=== PATIENT | male | born 1990 | race Caucasian/White ===

== ENCOUNTER 2017-04-30 11:00 | Emergency (ER) | payer OTHER ==
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
[2017-04-30 14:42] VITALS: BP 134/75
== END 2017-04-30 14:42 | disposition home or self-care (01) ==
LOC: ER 11:00
DX: S46.912A Strain of unspecified muscle, fascia and tendon at shoulder and upper arm level, left arm, initial encounter (principal); R16.1 Splenomegaly, not elsewhere classified; R07.89 Other chest pain; M54.9 Dorsalgia, unspecified; M54.2 Cervicalgia; M79.642 Pain in left hand; V49.9XXA Car occupant (driver) (passenger) injured in unspecified traffic accident, initial encounter
CPT/HCPCS: 71260; 72125; 74177; 99284

== ENCOUNTER 2017-05-25 06:45 | Emergency (ER) | payer OTHER ==
[2017-05-25] MEDS ORDERED: TETRACAINE HCL 0.5% OPH SOLN 2 ML OS ONE (07:06)
[2017-05-25] MEDS ORDERED: TOBRAMYCIN SULFATE/DEXAMETH OPH SUSP 2.5 ML OS ONE (07:32)
--- NOTE | 2017-05-25 07:39 | ER Document Report ---
ED General - General Chief Complaint: Eye Problem Stated Complaint: POSSIBLE EYE INFECTION Time Seen by Provider: 05/25/17 07:06 TRAVEL OUTSIDE OF THE [place] IN LAST 30 DAYS: No - HPI Patient complains to provider of: Left eye irritation Notes: Patient wears contacts states for the last 2 3 days having irritation to the left eye. Patient states when he wakes up the morning is red with crusting around it. Patient came to the ER today denies any eye trauma states changes contacts regularly. Patient denies any fever chills nausea vomiting diarrhea. Denies any visual changes. - Related Data Allergies/Adverse Reactions: Penicillins Allergy (Verified 05/25/17 06:46) CILLINS Allergy (Uncoded 05/25/17 06:46) Past Medical History - Social History Smoking Status: Never Smoker Chew tobacco use (# tins/day): Yes Frequency of alcohol use: Social Family History: DM Patient has suicidal ideation: No Patient has homicidal ideation: No Renal/ Medical History: Denies: Hx Peritoneal Dialysis Psychiatric Medical History: Reports: Hx Attention Deficit Hyperactivity Disorder, Hx Bipolar Disorder Past Surgical History: Reports: Hx Orthopedic Surgery - RIGHT HAND - Immunizations Hx Diphtheria, Pertussis, Tetanus Vaccination: Yes Review of Systems - Review of Systems Constitutional: No symptoms reported EENT: Eye pain, Eye discharge Cardiovascular: No symptoms reported Respiratory: No symptoms reported Gastrointestinal: No symptoms reported Genitourinary: No symptoms reported Male Genitourinary: No symptoms reported Musculoskeletal: No symptoms reported Skin: No symptoms reported Hematologic/Lymphatic: No symptoms reported Neurological/Psychological: No symptoms reported -: Yes All other systems reviewed and negative Physical Exam - Vital signs Vitals: Temp Pulse Resp BP Pulse Ox 97.8 F 84 18 127/79 H 98 05/25/17 06:46 05/25/17 06:46 05/25/17 06:46 05/25/17 06:46 05/25/17 06:46 Interpretation: Normal - General General appearance: Appears well, Alert - HEENT Head: Normocephalic, Atraumatic Eyes: Normal Conjunctiva: Injected Cornea: Normal Extraocular movements intact: Yes Eyelashes: Normal Pupils: PERRL Lids everted for exam: left: Normal - Version of the upper eyelid shows irritation of the medial being glands - Respiratory Respiratory status: No respiratory distress Chest status: Nontender Breath sounds: Normal Chest palpation: Normal - Cardiovascular Rhythm: Regular Heart sounds: Normal auscultation Murmur: No - Abdominal Inspection: Normal Distension: No distension Bowel sounds: Normal Tenderness: Nontender Organomegaly: No organomegaly - Back Back: Normal, Nontender - Extremities General upper extremity: Normal inspection, Nontender, Normal color, Normal ROM , Normal temperature General lower extremity: Normal inspection, Nontender, Normal color, Normal ROM , Normal temperature, Normal weight bearing. No: Raffi's sign - Neurological Neuro grossly intact: Yes Cognition: Normal Orientation: AAOx4 Cisco Coma Scale Eye Opening: Spontaneous Cisco Coma Scale Verbal: Oriented Cisco Coma Scale Motor: Obeys Commands Ebenezer Coma Scale Total: 15 Speech: Normal Motor strength normal: LUE, RUE, LLE, RLE Sensory: Normal - Psychological Associated symptoms: Normal affect, Normal mood - Skin Skin Temperature: Warm Skin Moisture: Dry Skin Color: Normal Course - Re-evaluation Re-evalutation: 05/25/17 11:15 Conjunctivitis with an underlying concern for possible early blepharitis will start patient on TobraDex as of the patient is a contact wearer. No dendritic lesions no fluorescein uptake on eye examination. - Vital Signs Vital signs: Temp Pulse Resp BP Pulse Ox 97.8 F 89 16 124/73 97 05/25/17 08:07 05/25/17 08:07 05/25/17 08:07 05/25/17 08:07 05/25/17 08:07 Procedures - Eye Procedure Left Fluorescein applied: Left Notes: 05/25/17 11:15 No signs of ulcers abrasions or dendritic lesions Discharge - Discharge Clinical Impression: Conjunctivitis Qualifiers: Conjunctivitis type: blepharoconjunctivitis Blepharoconjunctivitis type: unspecified Laterality: left Qualified Code(s): H10.502 - Unspecified blepharoconjunctivitis, left eye Condition: Good Disposition: HOME, SELF-CARE Instructions: Conjunctivitis ([facility]), Eyedrop Use ([facility]) Additional Instructions: Your examination today is consistent with a beginning of a conjunctivitis or infection of the eye and looks to be a beginning of an infection of the upper eyelids: Blepharitis. We will start you on an antibiotic drop TobraDex TobraDex is to be used 2 drops in the left eye 4 times a day for the next 7 days Do not wear contacts for the next 3-5 days. 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 He may take Tylenol Motrin for the pain. Wear dark sunglasses while outside Prescriptions: Naphazoline HCl/Pheniramine [Naphcon-A Eye Drops] 2 drop OP Q6 PRN #1 bottle PRN Reason: Forms: Return to Work Referrals: REJI TEE MD [Primary Care Provider] - Follow up as needed
[2017-05-25 08:08] VITALS: BP 124/73
== END 2017-05-25 08:07 | disposition home or self-care (01) ==
LOC: ER 06:45
DX: H10.502 Unspecified blepharoconjunctivitis, left eye (principal); Z88.0 Allergy status to penicillin
CPT/HCPCS: 99283; J3490

== ENCOUNTER 2017-08-19 17:30 | Emergency (ER) | payer MEDICAID ==
[2017-08-19] MEDS ORDERED: DIPH/PERTUSS(ACELL)/TETANUS VAC/PF 0.5 ML SYR (>=10YO) IM ONE (18:37)
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
--- NOTE | 2017-08-19 19:17 | RADIOLOGY REPORT (SQ) ---
EXAM DESCRIPTION: ANKLE LEFT COMPLETE COMPLETED DATE/TIME: 08/19/2017 7:03 pm REASON FOR STUDY: rolled ankle COMPARISON: None. NUMBER OF VIEWS: Three views. TECHNIQUE: AP, lateral, and oblique radiographic images acquired of the left ankle. LIMITATIONS: None. FINDINGS: MINERALIZATION: Normal. BONES: No acute fracture or dislocation. No worrisome bone lesions. JOINTS: No effusions. SOFT TISSUES: No soft tissue swelling. No foreign body. OTHER: No other significant finding. IMPRESSION: NEGATIVE STUDY OF THE LEFT ANKLE. NO RADIOGRAPHIC EVIDENCE OF ACUTE INJURY. TECHNICAL DOCUMENTATION: JOB ID: [id number] [email or web address]- All Rights Reserved Reading location - IP/workstation name: [email or web address]
--- NOTE | 2017-08-19 19:18 | RADIOLOGY REPORT (SQ) ---
EXAM DESCRIPTION: FINGER RIGHT COMPLETED DATE/TIME: 08/19/2017 7:03 pm REASON FOR STUDY: crush injury COMPARISON: None. NUMBER OF VIEWS: Three views. TECHNIQUE: AP, lateral, and oblique images acquired of the right fifth finger. LIMITATIONS: None. FINDINGS: MINERALIZATION: Normal. BONES: No acute fracture or dislocation. No worrisome bone lesions. SOFT TISSUES: No soft tissue swelling. No foreign body. OTHER: No other significant finding. IMPRESSION: NO RADIOGRAPHIC EVIDENCE OF ACUTE INJURY. COMMENT: SITE OF TRAUMA/COMPLAINT MARKED/STAMP COMPLETED: YES. TECHNICAL DOCUMENTATION: JOB ID: [id number] [employer]- All Rights Reserved Reading location - IP/workstation name: [email or web address]
[2017-08-19 20:16] VITALS: BP 128/76
== END 2017-08-19 20:14 | disposition home or self-care (01) ==
LOC: ER 17:30
DX: S67.196A Crushing injury of right little finger, initial encounter (principal); W23.0XXA Caught, crushed, jammed, or pinched between moving objects, initial encounter; S93.402A Sprain of unspecified ligament of left ankle, initial encounter; X50.0XXA Overexertion from strenuous movement or load, initial encounter
CPT/HCPCS: 99283; 90471; 73610; 73140; 90715; L1902

== ENCOUNTER 2019-12-16 07:27 | Emergency (ER) | payer SELFPAY ==
[2019-12-16 07:33] VITALS: BP 135/80
--- NOTE | 2019-12-16 08:27 | RADIOLOGY REPORT (SQ) ---
EXAM DESCRIPTION: WRIST RIGHT 3 VIEWS IMAGES COMPLETED DATE/TIME: 12/16/2019 7:42 am REASON FOR STUDY: Wrist Pain COMPARISON: None. NUMBER OF VIEWS: Three views right wrist LIMITATIONS: No technical limitations. FINDINGS: There is no acute or significant bone, joint or soft tissue abnormality. OTHER: No other significant finding. IMPRESSION: NORMAL STUDY. TECHNICAL DOCUMENTATION: JOB ID: [id number] Reading location - IP/workstation name: [email or web address]
[2019-12-16] MEDS ORDERED: TRAMADOL HCL 50 MG TABLET PO ONE (08:33)
--- NOTE | 2019-12-16 08:39 | ER Document Report ---
ED General - General Chief Complaint: Wrist Injury Stated Complaint: FALL/RIGHT WRIST PAIN,SWELLING Notes: Patient is a 29-year-old white male with a history of prior multi-tendon laceration and limited use of the right hand and fingers who presents the emergency department with a chief complaint of right wrist pain after a fall that occurred last night. Patient reports he tripped over a baby gate landing on her right outstretched hand. States he began having pain shortly after. States he tried to sleep it off but the pain continued to wake him from sleep. He has not tried any medications. States the pain is located to the entire dorsal surface of the right wrist. Denies any radiation of pain. Admits to tingling in the distal fingers. Reports limited range of motion secondary to prior injury but also secondary to pain. Denies any significant swelling or discoloration. No head injury or loss of consciousness. TRAVEL OUTSIDE OF THE [place] IN LAST 30 DAYS: No - Related Data Allergies/Adverse Reactions: Penicillins Allergy (Verified 12/16/19 08:05) CILLINS Allergy (Uncoded 12/16/19 08:05) Past Medical History - Social History Smoking Status: Former Smoker Chew tobacco use (# tins/day): Yes Frequency of alcohol use: Social Drug Abuse: None Family History: Reviewed & Not Pertinent, DM Patient has homicidal ideation: No Renal/ Medical History: Denies: Hx Peritoneal Dialysis Psychiatric Medical History: Reports: Hx Attention Deficit Hyperactivity Disorder, Hx Bipolar Disorder Past Surgical History: Reports: Hx Orthopedic Surgery - RIGHT HAND - Immunizations Hx Diphtheria, Pertussis, Tetanus Vaccination: Yes Review of Systems - Review of Systems Constitutional: denies: Fever EENT: denies: Throat pain Respiratory: denies: Short of breath Gastrointestinal: denies: Abdominal pain Genitourinary: denies: Pain Male Genitourinary: No symptoms reported Musculoskeletal: Joint pain Skin: denies: Change in color Hematologic/Lymphatic: denies: Easy bleeding Neurological/Psychological: denies: Lost consciousness Physical Exam - Vital signs Vitals: Temp Pulse Resp BP Pulse Ox 98.5 F 79 20 135/80 H 96 12/16/19 07:31 12/16/19 07:31 12/16/19 07:31 12/16/19 07:31 12/16/19 07:31 - General General appearance: Appears well, Alert In distress: None - Respiratory Respiratory status: No respiratory distress Chest status: Nontender Breath sounds: Normal Chest palpation: Normal - Cardiovascular Rhythm: Regular Heart sounds: Normal auscultation - Extremities Wrist: Other - 2+ radial on the right. 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 Decreased range of motion of the right wrist secondary to pain. No obvious swelling or deformity. Tender to palpation along the dorsal surface of the wrist. No point tenderness at the snuffbox. Good capillary refill distally. No ecchymosis. - Neurological Neuro grossly intact: Yes Cognition: Normal Orientation: AAOx4 - Psychological Associated symptoms: Normal affect, Normal mood - Skin Skin Temperature: Warm Skin Moisture: Dry Skin Color: Normal Course - Re-evaluation Re-evalutation: 12/16/19 08:40 X-rays negative for any acute process per radiologist. Patient without snuffbox tenderness. We placed in a Velcro wrist splint. We discussed supportive care measures and rice. We will give a short course of pain medications. If no imp rovement he will follow-up with orthopedics for reevaluation within 2 weeks. Counseled him regarding the importance of outpatient follow-up and advised to return here or any ER immediately with any new, persistent or worsening symptoms. He verbalized understood and agreed. - Vital Signs Vital signs: Temp Pulse Resp BP Pulse Ox 98.5 F 79 20 135/80 H 96 12/16/19 07:31 12/16/19 07:31 12/16/19 07:31 12/16/19 07:31 12/16/19 07:31 Discharge - Discharge Clinical Impression: Wrist sprain Qualifiers: Encounter type: initial encounter Laterality: right Qualified Code(s): S63.501A - Unspecified sprain of right wrist, initial encounter Condition: Stable Disposition: HOME, SELF-CARE Instructions: Wrist Sprain ([facility]) Additional Instructions: Follow-up with your regular doctor in 2 to 3 days for reevaluation. Return here or any ER immediately with any new, persistent or worsening symptoms. Prescriptions: Tramadol HCl [Ultram 50 mg Tablet] 50 mg PO Q6HP PRN #12 tablet PRN Reason: Forms: Return to Work Referrals: TORI CHAVARRIA JR, [ACTIVE PROVISIONAL STAFF] - Follow up as needed
== END 2019-12-16 08:53 | disposition home or self-care (01) ==
LOC: ER 07:27
DX: S63.501A Unspecified sprain of right wrist, initial encounter (principal); W18.30XA Fall on same level, unspecified, initial encounter; Z88.0 Allergy status to penicillin; Z87.891 Personal history of nicotine dependence
CPT/HCPCS: 99283